=== PATIENT | female | born 1985 | race Two or more races ===

== ENCOUNTER 2023-08-28 20:55 | Emergency (ER) | payer OTHER ==
[~2023-08-28] VITALS: Ht 162.6 cm; Wt 95.3 kg
[2023-08-28] MEDS ORDERED: PRENA1 TRUE CO1 EACH PO (21:05)
[2023-08-28 23:24] LABS: HEMATOCRIT 28.2 % (36.0-45.00); HEMOGLOBIN 9.2 g/dL (12.0-15.00); MEAN CELL VOLUME 87.7 fL (80.00-100.00); MEAN CORPUSCULAR HEMOGLOBIN 28.5 pg (27.00-32.0); MEAN CORPUSCULAR HGB CONC 32.5 g/dl (32.0-36.0); PLATELET COUNT 291 K/uL (150-450); RED BLOOD COUNT 3.21 M/uL (4.00-6.00); RED CELL DISTRIBUTION WIDTH 16.6 % (11.5-14.5)
[2023-08-28 23:24] LABS: URINE APPEARANCE Turbid; URINE COLOR Red; URINE GLUCOSE Negative (NEGATIVE)
[2023-08-29 00:28] LABS: CALCIUM 8.5 mg/dL (8.5-10.1); CREATININE SERUM 0.75 mg/dL (0.55-1.02); GFR 86.95; POTASSIUM 3.4 mEq/L (3.5-5.1)
[2023-08-29 00:34] LABS: INR 1.04; PARTIAL THROMBOPLASTIN TIME 20.8 SECONDS (22.0-34.0); PROTHROMBIN TIME 10.9 SECONDS (9.0-11.5)
[2023-08-29 00:35] LABS: URINE BILIRRUBIN NEGATIVE (NEGATIVE); URINE BLOOD LARGE; URINE PROTEIN 300 (NEGATIVE); URINE RBC > 10558.9 uL (0.0-20.8)
[2023-08-29 00:36] LABS: URINE BACTERIA 347.7 uL (0.0-1933); URINE EPITHELIAL CELLS 10.5 uL (0.0-38.8); URINE LEUKOCYTE NEGATIVE; URINE NITRATE NEGATIVE; URINE WBC 55.6 uL (0.0-23.2)
[2023-08-29 00:37] LABS: URINE CRYSTALS MODERATE /HPF
[2023-08-29 06:38] LABS: MEAN CELL VOLUME 85.3 fL (80.00-100.00); MEAN CORPUSCULAR HGB CONC 34.3 g/dl (32.0-36.0); PLATELET COUNT 256 K/uL (150-450); RED BLOOD COUNT 2.73 M/uL (4.00-6.00); RED CELL DISTRIBUTION WIDTH 16.1 % (11.5-14.5)
[2023-08-29 06:39] LABS: HEMATOCRIT 23.3 % (36.0-45.00); MEAN CORPUSCULAR HEMOGLOBIN 29.3 pg (27.00-32.0)
[2023-08-29 11:00] LABS: HEMATOCRIT 25.8 % (36.0-45.00); MEAN CORPUSCULAR HGB CONC 33.1 g/dl (32.0-36.0); PLATELET COUNT 311 K/uL (150-450); RED CELL DISTRIBUTION WIDTH 16.8 % (11.5-14.5)
[2023-08-29 11:01] LABS: HEMOGLOBIN 8.5 g/dL (12.0-15.00); MEAN CORPUSCULAR HEMOGLOBIN 28.3 pg (27.00-32.0)
== END 2023-08-29 16:38 | disposition home or self-care (01) ==
LOC: ER 20:56
PROVIDERS: General Practice; Obstetrics & Gynecology
DX: O03.9 Complete or unspecified spontaneous abortion without complication (principal); D64.9 Anemia, unspecified

== ENCOUNTER → 2024-05-01 09:50 | Outpatient (CLI) | payer OTHER ==
[~2024-05-01 09:50] MED LIST: PRENA1 TRUE CO1 EACH PO
== END | disposition home or self-care (01) ==
LOC: PRENATAL 09:50
PROVIDERS: ATTEND Obstetrics & Gynecology Maternal & Fetal Medicine
DX: Z76.1 Encounter for health supervision and care of foundling (principal)